=== PATIENT | male | born 1970 | race Two or more races ===

== ENCOUNTER 2019-08-22 19:42 | Emergency (ER) | payer SELFPAY ==
[~2019-08-22] VITALS: Ht 152.4 cm; Wt 57.2 kg
--- NOTE | 2019-08-22 20:07 | PHYS DOC ---
General Adult EDM: Chief Complaint: COVID 19 EXPOSURE HPI: HPI: Patient is a 48 year old male who presents with complaint of cough and shortness of breath. Patient indicates that he was exposed to COVID-19 when his was have been diagnosed. Patient indicates that she was diagnosed about 3 weeks ago and he has not been with her for the last week. Patient denies any fever. He denies any chest or abdominal pain. He states that shortness of breath is worsened with exertion. [] Review of Systems: Review of Systems: Constitutional: Denies fever or chills. [] Respiratory: Positive cough and shortness of breath. [] Cardiovascular: Denies chest pain or edema. [] GI: Denies abdominal pain, nausea, vomiting or diarrhea. [] Integument: Denies rash. [] Neurologic: Denies headache, focal weakness or sensory changes. [] A full 10 point review of systems has been reviewed and is otherwise negative. Heart Score: Risk Factors: Risk Factors: DM, Current or recent (<one month) smoker, HTN, HLP, family history of CAD, obesity. Risk Scores: Score 0 - 3: 2.5% MACE over next 6 weeks - Discharge Home Score 4 - 6: 20.3% MACE over next 6 weeks - Admit for Clinical Observation Score 7 - 10: 72.7% MACE over next 6 weeks - Early Invasive Strategies Physical Exam: PE: Constitutional: Well developed, well nourished, no acute distress, non-toxic appearance. [] HENT: Normocephalic, atraumatic, bilateral external ears normal, oropharynx moist, no oral exudates, nose normal. [] Eyes: PERRLA, EOMI, conjunctiva normal, no discharge. [] Neck: Normal range of motion, no tenderness, supple, no stridor. [] Cardiovascular: Regular rate and rhythm [] Lungs & Thorax: Bilateral breath sounds clear to auscultation [] Abdomen: Bowel sounds normal, soft, no tenderness. [] Skin: Warm, dry, no erythema, no rash. [] Extremities: No tenderness, no cyanosis, no clubbing, ROM intact, no edema. [] Neurologic: Alert and oriented X 3, no focal deficits noted. [] EKG: EKG: [] Radiology/Procedures: Radiology/Procedures: [] Impression: PROCEDURE: CHEST AP ONLY CHEST AP ONLY History: Cough Comparison: None. Findings: Single view of the chest is submitted. There is somewhat hazy appearing infiltrate of the mid right hemithorax and right lung base with somewhat peripheral distribution. There is also mild left base infiltrate. There is no dependent pleural fluid or pneumothorax. Heart size is within normal limits given technique. Small left base lung nodule is not excluded Impression: 1. There are infiltrates greater on the right. While nonspecific findings could be seen with atypical viral infectious etiologies such as COVID. Results were discussed with Dr. Luther August 22, 2019 8:59 PM. Electronically signed by: Nathanael Powers MD (08/22/2019 9:00 PM) [facility] Course & Med Decision Making: Course & Med Decision Making Pertinent Labs and Imaging studies reviewed. (See chart for details) [] Dragon Disclaimer: Dragon Disclaimer: This electronic medical record was generated, in whole or in part, using a voice recognition dictation system. COVID-19 Patient Risks: Age 65 or older: No Sign of co-morbidity: No Exp to person + for COVID: Yes Exp to PUI: Yes Travel from affected area: No Lower respiratory symptoms: Yes Fever: Yes Other: No PPE Use: Full PPE with N95 mask or PAPR: Yes Departure Departure Impression: Primary Impression: Pneumonia Qualified Codes: J18.9 - Pneumonia, unspecified organism Additional Impression: Suspected COVID-19 virus infection Disposition: 01 HOME, SELF-CARE Condition: STABLE Patient Instructions: Pneumonia, Adult Scripts Azithromycin (ZITHROMAX) 250 Mg Tablet 1 PKG PO UD, #6 TAB Prov: JADEN LUTHER Jr. DO 08/22/19 Amoxicillin/Potassium Clav (AUGMENTIN 875-125 TABLET) 1 Each Tablet 1 TAB PO BID for 10 Days, #20 TAB 0 Refills Prov: JADEN LUTHER Jr. DO 08/22/19 JADEN LUTHER Jr. DO August 22, 2019 20:07
--- NOTE | 2019-08-22 21:02 | RAD ---
CHEST AP ONLY History: Cough Comparison: None. Findings: Single view of the chest is submitted. There is somewhat hazy appearing infiltrate of the mid right hemithorax and right lung base with somewhat peripheral distribution. There is also mild left base infiltrate. There is no dependent pleural fluid or pneumothorax. Heart size is within normal limits given technique. Small left base lung nodule is not excluded Impression: 1. There are infiltrates greater on the right. While nonspecific findings could be seen with atypical viral infectious etiologies such as COVID. Results were discussed with Dr. Luther August 22, 2019 8:59 PM. Electronically signed by: Nathanael Powers MD (08/22/2019 9:00 PM) [facility]
[2019-08-22 21:13] LABS: BASO % 0 % (0-3); EOS % 0 % (0-3); HEMATOCRIT 45.6 % (39.0-53.0); HEMOGLOBIN 15.8 g/dL (13.0-17.5); LYMPH # 0.9 x10^3/uL (1.0-4.8); LYMPH % 23 % (24-48); MEAN CORPUSCULAR HEMOGLOBIN 31 pg (25-35); MEAN CORPUSCULAR HGB CONC 35 g/dL (31-37); MEAN CORPUSCULAR VOLUME 90 fL (79-100); MONO # 0.6 x10^3/uL (0.0-1.1); MONO % 15 % (0-9); NEUT # 2.5 x10^3/uL (1.8-7.7); NEUT % 63 % (31-73); PLATELET COUNT 134 x10^3/uL (140-400); RED BLOOD COUNT 5.08 x10^6/uL (4.30-5.70); RED CELL DISTRIBUTION WIDTH 12.8 % (11.5-14.5)
[2019-08-22 21:19] LABS: GFR 79.8; POTASSIUM 3.2 mmol/L (3.5-5.1)
[2019-08-22 21:25] LABS: ALBUMIN 3.4 g/dL (3.4-5.0); ALBUMIN/GLOBULIN RATIO 0.8 (1.0-1.7); TOTAL BILIRUBIN 0.5 mg/dL (0.2-1.0); TOTAL PROTEIN 7.9 g/dL (6.4-8.2)
[2019-08-22] MEDS ORDERED: AZIT250T PO (21:28)
[2019-08-22] MEDS ORDERED: AMOX1TAB61 PO (21:28)
[2019-08-22] MEDS ORDERED: POTASSIUM CHLORIDE 20 MEQ TABLET.ER. PO ONE (22:00)
[2019-08-22] MEDS ORDERED: cefTRIAXone IV Push 1 GM VIAL. IVP ONE (22:00)
[2019-08-22] MEDS ORDERED: AZITHROMYCIN 250 MG TABLET. PO ONE (22:00)
[2019-08-22] MEDS ORDERED: IV NORMAL SALINE 1000ML BAG 1,000 ML IV ONE (22:00)
[2019-08-22] MEDS ORDERED: ACETAMINOPHEN 500 MG TABLET PO ONE (22:30)
[2019-08-22 23:33] VITALS: BP 100/63
== END 2019-08-23 | disposition home or self-care (01) ==
LOC: ER 19:42
DX: J18.9 Pneumonia, unspecified organism (principal); R06.02 Shortness of breath; R05 Cough; Z20.828 Contact with and (suspected) exposure to other viral communicable diseases
CPT/HCPCS: 36415; 71045; 80053; 85025; 87040; 87635; 96374; 99285; J0696; J7030